=== PATIENT | male | born 1930 | race Caucasian/White ===

== ENCOUNTER 2016-06-30 02:49 | Emergency (ER) | payer MEDICARE, MEDICAID ==
[~2016-06-30] VITALS: Ht 177.8 cm; Wt 82.0 kg
[~2016-06-30 02:49] MED LIST: RANI300T7
[2016-06-30 03:49] VITALS: BP 170/68
[2016-06-30] MEDS ORDERED: CIPROFLOXACIN HCL 250MG TABLET PO ONE (04:15)
== END 2016-06-30 04:52 | disposition home or self-care (01) ==
LOC: ER 02:50
DX: N41.9 Inflammatory disease of prostate, unspecified (principal); I10 Essential (primary) hypertension; K21.9 Gastro-esophageal reflux disease without esophagitis; Z90.49 Acquired absence of other specified parts of digestive tract
CPT/HCPCS: 87077; 87086; 87186; 99283

== ENCOUNTER 2017-03-06 08:52 | Emergency (ER) | payer MEDICARE, MEDICAID ==
[~2017-03-06] VITALS: Ht 177.8 cm; Wt 84.0 kg
[2017-03-06] MEDS ORDERED: ACETAMINOPHEN 325MG TABLET PO ONE (10:45)
[2017-03-06 13:21] VITALS: BP 128/69
== END 2017-03-06 13:24 | disposition home or self-care (01) ==
LOC: ER 09:02
DX: M54.40 Lumbago with sciatica, unspecified side (principal); K21.9 Gastro-esophageal reflux disease without esophagitis; I10 Essential (primary) hypertension; Z87.891 Personal history of nicotine dependence; Z90.49 Acquired absence of other specified parts of digestive tract
CPT/HCPCS: 72131; 99284

== ENCOUNTER 2017-03-19 02:59 | Emergency (ER) | payer MEDICARE, MEDICAID ==
[~2017-03-19] VITALS: Ht 177.8 cm; Wt 84.0 kg
[2017-03-19] MEDS ORDERED: ALBUTEROL (0.083%) 2.5MG/3ML NEB HHN STA (03:44)
[2017-03-19] MEDS ORDERED: IPRATROPIUM BROMIDE (0.02%) 0.5MG/2.5ML NEB HHN STA (03:44)
[2017-03-19] MEDS: METHYLPREDNISOLONE SOD SUCC 125 MG/2 ML VIAL IV STA (04:12)
[2017-03-19 04:20] LABS: BASOPHILS % 0.9 % (0.0-2.0); EOSINOPHILS % 4.3 % (0.0-5.0); HEMATOCRIT. 41.5 % (42.0-52.0); HEMOGLOBIN. 13.5 g/dL (14.0-18.0); LYMPHOCYTES % 11.7 % (20.0-50.0); MEAN CORPUSCULAR VOLUME 85.8 fL (80.0-94.0); MEAN PLATELET VOLUME 9.2 fl (7.4-10.4); MONOCYTES % 12.6 % (2.0-8.0); NEUTROPHILS % 70.5 % (40.0-76.0); PLATELET 234 x1000/uL (130-400); RED BLOOD CELL COUNT 4.83 mill/uL (4.7-6.1); RED CELL DISTRIBUTION WIDTH 14.9 % (11.6-14.6)
[2017-03-19 04:24] LABS: CHLORIDE 112 mEq/L (98-107)
[2017-03-19 04:40] LABS: CARBON DIOXIDE 27 mEq/L (21-32)
[2017-03-19 05:30] VITALS: BP 115/75
== END 2017-03-19 05:47 | disposition home or self-care (01) ==
LOC: ER 03:15
DX: J06.9 Acute upper respiratory infection, unspecified (principal); J44.9 Chronic obstructive pulmonary disease, unspecified; I10 Essential (primary) hypertension; K21.9 Gastro-esophageal reflux disease without esophagitis; I49.9 Cardiac arrhythmia, unspecified; Z87.891 Personal history of nicotine dependence
CPT/HCPCS: 36415; 71045; 80053; 85025; 87804; 96374; 99285; J2930

== ENCOUNTER 2017-03-26 08:24 | Emergency (ER) | payer MEDICARE, MEDICAID ==
[~2017-03-26] VITALS: Ht 177.8 cm; Wt 86.0 kg
[2017-03-26] MEDS ORDERED: IPRATROPIUM/ALBUTEROL 0.5-3(2.5)MG/3ML NEB ONE (09:10)
[2017-03-26] MEDS ORDERED: PREDNISONE 20MG TABLET PO ONE (09:15)
[2017-03-26] MEDS ORDERED: IPRATROPIUM/ALBUTEROL 0.5-3(2.5)MG/3ML NEB HHN ONE (09:15)
[2017-03-26 09:59] VITALS: BP 146/58
== END 2017-03-26 10:03 | disposition home or self-care (01) ==
LOC: ER 09:00
DX: J44.1 Chronic obstructive pulmonary disease with (acute) exacerbation (principal); I10 Essential (primary) hypertension; Z90.49 Acquired absence of other specified parts of digestive tract
CPT/HCPCS: 71045; 87070; 94640; 99285; J7512; J7620

== ENCOUNTER 2017-08-06 09:07 | Emergency (ER) | payer MEDICAID, MEDICARE ==
[~2017-08-06] VITALS: Ht 177.8 cm; Wt 82.4 kg
[2017-08-06] MEDS ORDERED: OMEP20CA10 MT (09:21)
[2017-08-06] MEDS ORDERED: LORA10TA7 PO (09:21)
[2017-08-06] MEDS ORDERED: ASPI-1159 PO (09:21)
[2017-08-06] MEDS ORDERED: ALBUTEROL (0.083%) 2.5MG/3ML NEB HHN STA (09:47)
[2017-08-06 10:05] LABS: MEAN CORPUSCULAR HEMOGLOBIN 27.4 pg (28.0-32.0); MEAN CORPUSCULAR VOLUME 83.9 fL (80.0-94.0); PLATELET 243 x1000/uL (130-400); RED BLOOD CELL COUNT 5.48 mill/uL (4.7-6.1); RED CELL DISTRIBUTION WIDTH 15.4 % (11.6-14.6)
[2017-08-06 10:10] LABS: CHLORIDE 104 mEq/L (98-107)
[2017-08-06 10:13] LABS: INR 1.1; PROTHROMBIN TIME 11.4 sec (9.4-11.6)
[2017-08-06 11:17] LABS: PLATELET ESTIMATE NORMAL
[2017-08-06] MEDS ORDERED: METHYLPREDNISOLONE SOD SUCC 125 MG/2 ML VIAL IV STA (13:46)
[2017-08-06 14:50] VITALS: BP 147/72
== END 2017-08-06 15:09 | disposition home or self-care (01) ==
LOC: ER 09:32
DX: R06.02 Shortness of breath (principal); R05 Cough; J94.9 Pleural condition, unspecified; I10 Essential (primary) hypertension; J44.9 Chronic obstructive pulmonary disease, unspecified
CPT/HCPCS: 36415; 71045; 80053; 83880; 84484; 85025; 85610; 93005; 94640; 96374; 99285; J2930; J7611

== ENCOUNTER 2021-05-03 10:05 | Inpatient (IN) | payer MEDICARE, OTHER ==
[~2021-05-03] VITALS: Ht 180.3 cm; Wt 78.5 kg
[~2021-05-03 10:05] MED LIST changes: +ASPI-1497 PO; +LORA10TA7 PO; +OMEP20CA14 MT
[2021-05-03] MEDS ORDERED: ALBUTEROL (0.083%) 2.5MG/3ML NEB HHN ONE ×3 (10:30)
[2021-05-03] MEDS ORDERED: IPRATROPIUM BROMIDE (0.02%) 0.5MG/2.5ML NEB HHN ONE (10:30)
[2021-05-03] MEDS ORDERED: METHYLPREDNISOLONE SOD SUCC 125 MG/2 ML VIAL IV ONE (10:30)
[2021-05-03 10:53] LABS: HEMATOCRIT. 44.4 % (42.0-52.0); HEMOGLOBIN. 14.9 g/dL (14.0-18.0); MEAN CORPUSCULAR HEMOGLOBIN 28.9 pg (28.0-32.0); MEAN CORPUSCULAR VOLUME 86.3 fL (80.0-94.0); MEAN PLATELET VOLUME 9.3 fl (7.4-10.4); PLATELET 143 x1000/uL (130-400); RED BLOOD CELL COUNT 5.14 mill/uL (4.7-6.1); RED CELL DISTRIBUTION WIDTH 15.9 % (11.6-14.6)
[2021-05-03 10:57] LABS: CHLORIDE 105 mEq/L (98-107)
[2021-05-03 11:02] LABS: ETHANOL BLOOD < 10 mg/dL
[2021-05-03 12:06] LABS: PLATELET ESTIMATE NORMAL
[2021-05-03] MEDS ORDERED: ACETAMINOPHEN 325MG TABLET PO PRN (13:15)
[2021-05-03] MEDS ORDERED: ONDANSETRON HCL 4MG/2ML INJ IV PRN (13:15)
[2021-05-03] MEDS ORDERED: DIPHENHYDRAMINE 50MG/ML VIAL IV PRN (13:15)
[2021-05-03] MEDS ORDERED: MORPHINE SULFATE 2 MG/ML CPJ (NOT FOR IM USE) IV PRN (13:15)
[2021-05-03] MEDS ORDERED: IPRATROPIUM/ALBUTEROL 0.5-3(2.5)MG/3ML NEB NEB PRN (13:15)
[2021-05-03] MEDS ORDERED: LORAZEPAM 0.5MG TABLET PO PRN (13:15)
[2021-05-03] MEDS ORDERED: HYDROCODONE/ACETAMINOPHEN 5/325MG TABLET PO PRN (13:15)
[2021-05-03] MEDS ORDERED: NA PHOS,M-B/NA PHOS,DI-BA ENEMA 118ML PR PRN (13:15)
[2021-05-03] MEDS ORDERED: GUAIFENESIN 200MG/10ML SUGAR FREE UDC PO PRN (13:15)
[2021-05-03] MEDS ORDERED: CLONIDINE 0.1MG TABLET PO PRN (13:15)
[2021-05-03] MEDS ORDERED: ACETAMINOPHEN 650MG SUPP PR PRN (13:15)
[2021-05-03] MEDS ORDERED: MAGNESIUM/ALUMINUM HYDROXIDE/SIMETHICONE 30ML UDC PO PRN (13:15)
[2021-05-03] MEDS ORDERED: DOCUSATE SODIUM 100MG CAPSULE PO PRN (13:15)
[2021-05-03] MEDS: PANTOPRAZOLE 40MG DR TABLET PO SCH (13:30)
[2021-05-03 13:43] LABS: D-DIMER 0.94 mg/L FEU (<0.50); PHOSPHORUS 2.9 mg/dL (2.5-4.9); PROTHROMBIN TIME 11.2 sec (9.6-11.0)
[2021-05-03] MEDS ORDERED: NALOXONE HCL 0.4MG/ML VIAL IV PRN (13:45)
[2021-05-03] MEDS ORDERED: PIPERACILLIN/TAZOBACTAM 3.375 G in DEXTROSE 5% WATER 50 ML IV SCH (14:00)
[2021-05-03] MEDS ORDERED: ENOXAPARIN 40MG/0.4ML SYR SUBCUT SCH (14:00)
[2021-05-03 16:25] VITALS: BP 148/69
[2021-05-03 18:25] LABS: CREATINE KINASE MB FRACTION 2.1 ng/mL (0.5-3.6)
[2021-05-03 20:00] VITALS: BP 130/86
[2021-05-03 20:55] LABS: CLARITY URINE CLEAR (CLEAR); COLOR URINE YELLOW (YELLOW); KETONES URINE NEGATIVE (NEGATIVE); LEUKOCYTE ESTERASE URINE NEGATIVE (NEGATIVE); NITRITE URINE NEGATIVE (NEGATIVE); OCCULT BLOOD URINE NEGATIVE (NEGATIVE); PH URINE 7.5 (4.5-8.0); PROTEIN URINE NEGATIVE (NEGATIVE); SPECIFIC GRAVITY URINE 1.012 (1.005-1.030)
[2021-05-03 21:16] LABS: *AMPHETAMINES SCREEN URINE NEGATIVE (NEGATIVE); *BARBITURATES SCREEN URINE NEGATIVE (NEGATIVE); *BENZODIAZEPINES SCREEN URINE NEGATIVE (NEGATIVE); *COCAINE SCREEN URINE NEGATIVE (NEGATIVE); METHADONE URINE SCREEN NEGATIVE (NEGATIVE); OPIATES URINE SCREEN NEGATIVE (NEGATIVE)
[2021-05-03 21:17] LABS: CANNABINOID URINE SCREEN NEGATIVE (NEGATIVE); PHENCYCLIDINE URINE SCREEN NEGATIVE (NEGATIVE)
[2021-05-03] MEDS ORDERED: INFLUENZA VACCINE 05/PF 0.5 ML SYRINGE IM ONE (21:45)
[2021-05-03] MEDS ORDERED: PNEUMOCOCCAL 23-VAL P-SAC VAC 0.5 ML IM ONE (21:45)
[2021-05-03] MEDS: PIPERACILLIN/TAZOBACTAM 3.375 G in DEXTROSE 5% WATER 50 ML IV SCH (21:47)
[2021-05-04] VITALS: BP 125/59
[2021-05-04 00:46] LABS: CREATINE KINASE MB FRACTION 2.4 ng/mL (0.5-3.6)
[2021-05-04 04:00] VITALS: BP 119/78
[2021-05-04] MEDS: PANTOPRAZOLE 40MG DR TABLET PO SCH (06:25)
[2021-05-04] MEDS: PIPERACILLIN/TAZOBACTAM 3.375 G in DEXTROSE 5% WATER 50 ML IV SCH ×2 (06:29→14:00)
[2021-05-04 07:00] LABS: CHLORIDE 108 mEq/L (98-107)
[2021-05-04 07:08] LABS: LDL CHOLESTEROL 78 mg/dL (5-100)
[2021-05-04 07:09] LABS: HDL CHOLESTEROL 62 mg/dL (40-59); T4 FREE 1.03 ng/dL (0.76-1.46)
[2021-05-04 07:21] LABS: HEMATOCRIT. 41.9 % (42.0-52.0); HEMOGLOBIN. 14.2 g/dL (14.0-18.0); MEAN CORPUSCULAR HEMOGLOBIN 29.1 pg (28.0-32.0); MEAN PLATELET VOLUME 9.7 fl (7.4-10.4); PLATELET 128 x1000/uL (130-400); RED BLOOD CELL COUNT 4.87 mill/uL (4.7-6.1); RED CELL DISTRIBUTION WIDTH 16.1 % (11.6-14.6)
[2021-05-04 07:23] VITALS: BP 155/74
[2021-05-04 07:34] LABS: INR 1.1; PARTIAL THROMBOPLASTIN TIME 30.8 sec (23.4-31.0); PROTHROMBIN TIME 11.6 sec (9.6-11.0)
[2021-05-04] MEDS ORDERED: ASPIRIN 81MG EC TABLET PO SCH (09:00)
[2021-05-04] MEDS ORDERED: NITROGLYCERIN SPRAY/4.9GM CAN TL SCH (12:15)
[2021-05-04 13:00] VITALS: BP 135/55
[2021-05-04 13:08] LABS: PLATELET ESTIMATE SLIGHTLY DECREASED
[2021-05-04 15:04] VITALS: BP 119/66
[2021-05-04] MEDS ORDERED: IOHEXOL-350 100 ML BOTTLE ONE (15:37)
[2021-05-04] MEDS ORDERED: ASPI-1497 PO (16:37)
[2021-05-04] MEDS ORDERED: ATOR10TA MT (16:54)
[2021-05-04 17:35] VITALS: BP 119/66
[2021-05-05] MEDS ORDERED: FAMOTIDINE 20MG TABLET PO SCH (09:00)
== END 2021-05-04 19:05 | disposition home or self-care (01) | DRG 391 ==
LOC: ER 10:16 → 6WST 12:19 → EDBEDREQSVC 12:26 → ENRESERV 14:19
PROVIDERS: ADMIT Internal Medicine; ATTEND Internal Medicine
DX: K21.9 Gastro-esophageal reflux disease without esophagitis (principal); K85.90 Acute pancreatitis without necrosis or infection, unspecified; I10 Essential (primary) hypertension; I48.91 Unspecified atrial fibrillation; J44.9 Chronic obstructive pulmonary disease, unspecified; R73.9 Hyperglycemia, unspecified; I73.9 Peripheral vascular disease, unspecified; I49.3 Ventricular premature depolarization; N28.1 Cyst of kidney, acquired; Z20.822 Contact with and (suspected) exposure to COVID-19; Z79.82 Long term (current) use of aspirin; Z79.899 Other long term (current) drug therapy; Z90.49 Acquired absence of other specified parts of digestive tract; Z87.442 Personal history of urinary calculi; Z87.891 Personal history of nicotine dependence; Z87.19 Personal history of other diseases of the digestive system; I49.9 Cardiac arrhythmia, unspecified
CPT/HCPCS: 36415; 71045; 75571; 76700; 78582; 80053; 80061; 80305; 80320; 81003; 82150; 82550; 82553; 83036; 83735; 83880; 84100; 84439; 84443; 84484; 85025; 85379; 87077; 87186; 87426; 90686; 90732; 93005; 93306; 93923; 93970; 99285; A9558; J2543; J2930; J7060; Q9967; G0480

== ENCOUNTER 2021-06-03 07:58 | Emergency (ER) | payer OTHER ==
[~2021-06-03] VITALS: Ht 177.8 cm; Wt 76.0 kg
[~2021-06-03 07:58] MED LIST changes: +ATOR10TA MT
[2021-06-03] MEDS ORDERED: TETANUS, DIPHTHERIA, PERTUSSIS VAC/PF 0.5ML (>10YR OLD) IM ONE (08:30)
[2021-06-03] MEDS ORDERED: ACETAMINOPHEN 325MG TABLET PO ONE (08:30)
[2021-06-03] MEDS ORDERED: BACITRACIN ZINC OINT UDPKT TOP ONE (08:30)
[2021-06-03 12:30] VITALS: BP 147/66
== END 2021-06-03 12:36 | disposition home or self-care (01) ==
LOC: ER 08:08
DX: S01.81XA Laceration without foreign body of other part of head, initial encounter (principal); X58.XXXA Exposure to other specified factors, initial encounter; Y93.89 Activity, other specified; Y92.89 Other specified places as the place of occurrence of the external cause; Y99.8 Other external cause status; I48.91 Unspecified atrial fibrillation; Z87.891 Personal history of nicotine dependence; Z79.899 Other long term (current) drug therapy
CPT/HCPCS: 12013; 90471; 90715; 99284

== ENCOUNTER 2021-08-15 02:57 | Inpatient (IN) | payer OTHER ==
[~2021-08-15] VITALS: Ht 177.8 cm; Wt 76.7 kg
[2021-08-15 05:33] LABS: HEMATOCRIT. 39.2 % (42.0-52.0); HEMOGLOBIN. 12.6 g/dL (14.0-18.0); MEAN CORPUSCULAR HEMOGLOBIN 27.8 pg (28.0-32.0); MEAN CORPUSCULAR VOLUME 86.2 fL (80.0-94.0); MEAN PLATELET VOLUME 9.7 fl (7.4-10.4); PLATELET 129 x1000/uL (130-400); RED BLOOD CELL COUNT 4.54 mill/uL (4.7-6.1); RED CELL DISTRIBUTION WIDTH 17.7 % (11.6-14.6)
[2021-08-15 05:36] LABS: CHLORIDE 108 mEq/L (98-107)
[2021-08-15 06:02] LABS: BG BASE EXCESS 0.8 mmol/L (-2.0-2.0); BG CARBOXYHEMOGLOBIN 0.3 % (0.5-1.5); BG DEOXYHEMOGLOBIN 4.1 % (0.0-5.0); BG FRACTION INSPIRED OXYGEN 32; BG METHEMOGLOBIN 0.4 % (0.0-1.5); BG OXYGEN SATURATION 95.9 % (92.0-98.5); BG OXYHEMOGLOBIN 95.2 % (94.0-97.0); BG PCO2 38.4 mmHg (35.0-45.0); BG PH 7.431 (7.350-7.450); BG PO2 77.7 mmHg (75.0-100.0); BG SAMPLE SITE RIGHT RADIAL; BG TOTAL HEMOGLOBIN 12.7 g/dL (12.0-18.0); BG VENT MODE NASAL CANNULA
[2021-08-15 06:16] LABS: PLATELET ESTIMATE NORMAL
[2021-08-15] MEDS ORDERED: ENOXAPARIN 60MG/0.6ML SYR SUBCUT ONE (11:45)
[2021-08-15 12:25] VITALS: BP 103/50
[2021-08-15 13:27] VITALS: BP 103/50
[2021-08-15] MEDS ORDERED: ACETAMINOPHEN 325MG TABLET PO PRN (13:45)
[2021-08-15] MEDS ORDERED: ONDANSETRON HCL 4MG/2ML INJ IV PRN (13:45)
[2021-08-15] MEDS ORDERED: ENOXAPARIN 60MG/0.6ML SYR SUBCUT NR (13:45)
[2021-08-15 16:00] VITALS: BP 113/52
[2021-08-15 16:25] LABS: HEMOGLOBIN. 12.4 g/dL (14.0-18.0); MEAN CORPUSCULAR HEMOGLOBIN 27.5 pg (28.0-32.0); MEAN CORPUSCULAR VOLUME 86.5 fL (80.0-94.0); MEAN PLATELET VOLUME 9.8 fl (7.4-10.4); PLATELET 127 x1000/uL (130-400); RED BLOOD CELL COUNT 4.51 mill/uL (4.7-6.1); RED CELL DISTRIBUTION WIDTH 18.1 % (11.6-14.6)
[2021-08-15] MEDS: SODIUM CHLORIDE 0.9% 1,000 ML IV SCH (16:29)
[2021-08-15] MEDS: ASPIRIN 81MG EC TABLET PO SCH (16:44)
[2021-08-15] MEDS: OMEPRAZOLE 20MG CAPSULE EXTENDED RELEASE PO SCH (16:44)
[2021-08-15] MEDS: CEFEPIME 1,000 MG in DEXTROSE 5% WATER 50 ML IV SCH (16:45)
[2021-08-15 16:48] LABS: CREATINE KINASE MB FRACTION 4.7 ng/mL (0.5-3.6)
[2021-08-15 16:53] LABS: PLATELET ESTIMATE DECREASED
[2021-08-15 18:36] VITALS: BP 113/52
[2021-08-15 20:00] VITALS: BP 111/49
[2021-08-15] MEDS ORDERED: ENOXAPARIN 80MG/0.8ML SYR SUBCUT SCH (21:00)
[2021-08-15] MEDS: ATORVASTATIN CALCIUM 10MG TABLET PO SCH (21:18)
[2021-08-16] VITALS: BP 109/54
[2021-08-16] MEDS: CEFEPIME 1,000 MG in DEXTROSE 5% WATER 50 ML IV SCH ×2 (01:40→13:31)
[2021-08-16] MEDS: SODIUM CHLORIDE 0.9% 1,000 ML IV SCH (03:20)
[2021-08-16 04:00] VITALS: BP 106/50
[2021-08-16] MEDS ORDERED: SODIUM CHLORIDE 0.45% 1,000 ML IV ONE (06:00)
[2021-08-16 07:05] LABS: CHLORIDE 108 mEq/L (98-107)
[2021-08-16 07:20] LABS: HDL CHOLESTEROL 61 mg/dL (40-59); LDL CHOLESTEROL 34 mg/dL (5-100)
[2021-08-16 07:27] LABS: HEMOGLOBIN. 12.2 g/dL (14.0-18.0); MEAN CORPUSCULAR HEMOGLOBIN 28.4 pg (28.0-32.0); MEAN CORPUSCULAR VOLUME 86.6 fL (80.0-94.0); RED BLOOD CELL COUNT 4.28 mill/uL (4.7-6.1); RED CELL DISTRIBUTION WIDTH 18.3 % (11.6-14.6)
[2021-08-16 08:00] VITALS: BP 129/51
[2021-08-16] MEDS: OMEPRAZOLE 20MG CAPSULE EXTENDED RELEASE PO SCH (08:25)
[2021-08-16] MEDS: ASPIRIN 81MG EC TABLET PO SCH (09:00)
[2021-08-16 10:22] LABS: PLATELET 90 x1000/uL (130-400)
[2021-08-16 10:25] LABS: PLATELET ESTIMATE DECREASED
[2021-08-16 10:45] LABS: INR 1.2; PROTHROMBIN TIME 12.4 sec (9.6-11.0)
[2021-08-16] MEDS ORDERED: POTASSIUM CHLORIDE 20MEQ/PACKET PO NR (11:15)
[2021-08-16 11:26] LABS: CLARITY URINE CLEAR (CLEAR); COLOR URINE DARK YELLOW (YELLOW); KETONES URINE TRACE (NEGATIVE); LEUKOCYTE ESTERASE URINE TRACE (NEGATIVE); NITRITE URINE NEGATIVE (NEGATIVE); OCCULT BLOOD URINE NEGATIVE (NEGATIVE); PH URINE 6.5 (4.5-8.0); PROTEIN URINE TRACE (NEGATIVE); SPECIFIC GRAVITY URINE 1.027 (1.005-1.030)
[2021-08-16 12:00] VITALS: BP 128/69
[2021-08-16 12:08] LABS: *AMPHETAMINES SCREEN URINE NEGATIVE (NEGATIVE); *BARBITURATES SCREEN URINE NEGATIVE (NEGATIVE); *BENZODIAZEPINES SCREEN URINE NEGATIVE (NEGATIVE); *COCAINE SCREEN URINE NEGATIVE (NEGATIVE); CANNABINOID URINE SCREEN NEGATIVE (NEGATIVE); METHADONE URINE SCREEN NEGATIVE (NEGATIVE); OPIATES URINE SCREEN NEGATIVE (NEGATIVE); PHENCYCLIDINE URINE SCREEN NEGATIVE (NEGATIVE)
[2021-08-16 16:00] VITALS: BP 130/65
[2021-08-16] MEDS: ATORVASTATIN CALCIUM 10MG TABLET PO SCH (20:16)
[2021-08-16] MEDS ORDERED: ENOXAPARIN 80MG/0.8ML SYR SUBCUT SCH (21:00)
[2021-08-16] MEDS: IPRATROPIUM/ALBUTEROL 0.5-3(2.5)MG/3ML NEB NEB PRN (22:12)
[2021-08-17] VITALS: BP 126/68
[2021-08-17] MEDS: CEFEPIME 1,000 MG in DEXTROSE 5% WATER 50 ML IV SCH ×2 (01:24→17:35)
[2021-08-17 04:00] VITALS: BP 126/48
[2021-08-17] MEDS ORDERED: SODIUM CHLORIDE 0.45% 1,000 ML IV ONE ×2 (06:00→14:15)
[2021-08-17] MEDS: OMEPRAZOLE 20MG CAPSULE EXTENDED RELEASE PO SCH (06:04)
[2021-08-17 06:54] LABS: HEMATOCRIT. 35.9 % (42.0-52.0); MEAN CORPUSCULAR HEMOGLOBIN 28.7 pg (28.0-32.0); MEAN CORPUSCULAR VOLUME 85.7 fL (80.0-94.0); MEAN PLATELET VOLUME 9.6 fl (7.4-10.4); PLATELET 99 x1000/uL (130-400); RED BLOOD CELL COUNT 4.18 mill/uL (4.7-6.1); RED CELL DISTRIBUTION WIDTH 17.7 % (11.6-14.6)
[2021-08-17 07:00] LABS: CHLORIDE 108 mEq/L (98-107)
[2021-08-17 08:00] VITALS: BP 109/63
[2021-08-17] MEDS: ASPIRIN 81MG EC TABLET PO SCH (08:23)
[2021-08-17] MEDS ORDERED: NITROGLYCERIN 50MCG/ML 10ML VIAL (CATH LAB) IV ONE (09:10)
[2021-08-17] MEDS ORDERED: PHENYLEPHRINE 100MCG/ML 10ML VIAL (CATH LAB) ONE (09:10)
[2021-08-17 12:00] VITALS: BP 110/74
[2021-08-17] MEDS ORDERED: LIDOCAINE HCL/PF 1% 10 MG/ML 5ML VIAL ONE (13:06)
[2021-08-17] MEDS ORDERED: HEPARIN 1000 UNITS/ML 10ML ONE (13:06)
[2021-08-17] MEDS ORDERED: IODIXANOL 320MG/ML 100 ML BOTTLE IV ONE (13:06)
[2021-08-17] MEDS ORDERED: FENTANYL CITRATE/PF 50MCG/ML 2ML VIAL ONE (13:07)
[2021-08-17] MEDS ORDERED: MIDAZOLAM HCL 2 MG/2 ML VIAL ONE (13:07)
[2021-08-17] MEDS ORDERED: ASPIRIN/SOD BICARB/CITRIC ACID 324MG TAB EFF ONE (13:25)
[2021-08-17] MEDS ORDERED: ACETAMINOPHEN 325MG TABLET PO PRN (14:15)
[2021-08-17] MEDS ORDERED: ATROPINE SULFATE 1MG/10ML SYR IV PRN (14:15)
[2021-08-17] MEDS ORDERED: ONDANSETRON HCL 4MG/2ML INJ IV PRN (14:15)
[2021-08-17] MEDS ORDERED: MORPHINE SULFATE 2 MG/ML CPJ (NOT FOR IM USE) IV PRN (14:15)
[2021-08-17 16:00] VITALS: BP 159/69
[2021-08-17] MEDS ORDERED: NALOXONE HCL 0.4MG/ML VIAL IV PRN (16:45)
[2021-08-17 20:00] VITALS: BP 119/53
[2021-08-17] MEDS: ATORVASTATIN CALCIUM 10MG TABLET PO SCH (21:37)
[2021-08-17] MEDS: IPRATROPIUM/ALBUTEROL 0.5-3(2.5)MG/3ML NEB NEB PRN (22:14)
[2021-08-17] MEDS: PROMETHAZINE/DEXTROMETHORPHAN 6.25-15MG/5ML BOTTLE 120ML PO PRN (23:55)
[2021-08-18] VITALS: BP 151/66
[2021-08-18] MEDS: CEFEPIME 1,000 MG in DEXTROSE 5% WATER 50 ML IV SCH ×2 (01:54→13:16)
[2021-08-18 04:00] VITALS: BP 142/52
[2021-08-18 06:55] LABS: HEMATOCRIT. 35.4 % (42.0-52.0); HEMOGLOBIN. 11.9 g/dL (14.0-18.0); MEAN CORPUSCULAR HEMOGLOBIN 28.7 pg (28.0-32.0); MEAN CORPUSCULAR VOLUME 85.4 fL (80.0-94.0); MEAN PLATELET VOLUME 9.5 fl (7.4-10.4); PLATELET 98 x1000/uL (130-400); RED BLOOD CELL COUNT 4.15 mill/uL (4.7-6.1); RED CELL DISTRIBUTION WIDTH 18.4 % (11.6-14.6)
[2021-08-18 07:44] VITALS: BP 115/52
[2021-08-18 07:47] LABS: CHLORIDE 107 mEq/L (98-107)
[2021-08-18] MEDS: IPRATROPIUM/ALBUTEROL 0.5-3(2.5)MG/3ML NEB NEB PRN (08:17)
[2021-08-18] MEDS: OMEPRAZOLE 20MG CAPSULE EXTENDED RELEASE PO SCH (08:29)
[2021-08-18] MEDS: ASPIRIN 81MG EC TABLET PO SCH (08:29)
[2021-08-18 09:24] LABS: PLATELET ESTIMATE DECREASED
[2021-08-18 12:00] VITALS: BP 131/55
[2021-08-18] MEDS: PROMETHAZINE/DEXTROMETHORPHAN 6.25-15MG/5ML BOTTLE 120ML PO PRN (13:16)
[2021-08-18 13:47] LABS: PLATELET ESTIMATE DECREASED
[2021-08-18] MEDS ORDERED: PROT40 MT (15:41)
[2021-08-18 16:00] VITALS: BP 129/81
[2021-08-18 16:14] VITALS: BP 129/81
[2021-08-23 17:06] LABS: DIRECTOR REVIEW Comment: (.); FISH RESULTS Comment: (.)
== END 2021-08-18 17:15 | disposition home or self-care (01) | DRG 281 ==
LOC: ER 03:14 → 7WST 08:23 → ENRESERV 11:10 → 7WST 12:26
PROVIDERS: ADMIT Internal Medicine; ATTEND Internal Medicine
PROC: 4A023N7 Measurement of Cardiac Sampling and Pressure, Left Heart, Percutaneous Approach (ICD-10-PCS; principal; 2021-08-17)
PROC: B211YZZ Fluoroscopy of Multiple Coronary Arteries using Other Contrast (ICD-10-PCS; 2021-08-17)
DX: I21.4 Non-ST elevation (NSTEMI) myocardial infarction (principal); R65.10 Systemic inflammatory response syndrome (SIRS) of non-infectious origin without acute organ dysfunction; D72.821 Monocytosis (symptomatic); D69.6 Thrombocytopenia, unspecified; I25.10 Atherosclerotic heart disease of native coronary artery without angina pectoris; Z20.822 Contact with and (suspected) exposure to COVID-19; I48.91 Unspecified atrial fibrillation; J44.9 Chronic obstructive pulmonary disease, unspecified; K21.9 Gastro-esophageal reflux disease without esophagitis; D72.829 Elevated white blood cell count, unspecified; Z87.442 Personal history of urinary calculi; Z87.891 Personal history of nicotine dependence; Z87.19 Personal history of other diseases of the digestive system
CPT/HCPCS: 36415; 36600; 71045; 80048; 80053; 80061; 80305; 81003; 82375; 82550; 82553; 82805; 83615; 83735; 83880; 84145; 84443; 84484; 85025; 85651; 86022; 87426; 87804; 93005; 93306; 93458; 93970; 94640; 99291; C1769; C1887; C1893; C9803; J0692; J1644; J1650; J2250; J2370; J3010; J3490; J7030; J7060; Q9967